=== PATIENT | female | born 1980 | race Caucasian/White ===

== ENCOUNTER → 2018-02-10 | Outpatient (CLI) | payer SELFPAY | LOC: COL.RAD 10:00 | DX: R60.0 Localized edema (principal); M79.605 Pain in left leg ==

== ENCOUNTER → 2018-05-11 | Outpatient (CLI) | payer SELFPAY | LOC: ZCOL.LAB 13:47 | DX: Z01.89 Encounter for other specified special examinations (principal) ==

== ENCOUNTER → 2020-12-20 | Outpatient (CLI) | payer OTHER ==
[~2020-12-20] MED LIST: CELEXA 20MG20 MG/TA1 PO; CEPHALEXIN500 M1 PO; COLLAGENASE 1 ML1 ML; MULTIVITAMIN200 MCG PO; PROBIOTIC DIGE1 EACH
== END ==
LOC: MC.RAD 11:00
DX: N63.20 Unspecified lump in the left breast, unspecified quadrant (principal)

== ENCOUNTER → 2021-01-09 | Outpatient (CLI) | payer OTHER | LOC: MC.RAD 12-26 07:00 | DX: N63.20 Unspecified lump in the left breast, unspecified quadrant (principal); Z98.82 Breast implant status ==

== ENCOUNTER 2021-02-21 08:04 | Day surgery (SDC) | payer OTHER ==
[~2021-02-21] VITALS: Ht 172.7 cm; Wt 82.3 kg
[~2021-02-21 08:04] MED LIST changes: -COLLAGENASE 1 ML1 ML; -MULTIVITAMIN200 MCG PO; -PROBIOTIC DIGE1 EACH
[2021-02-21 08:56] VITALS: BP 136/95; PULSE 74; TEMP 97.7
[2021-02-21] MEDS ORDERED: COLLAGENASE 1 ML1 ML (09:09)
[2021-02-21] MEDS ORDERED: PROBIOTIC DIGE1 EACH (09:09)
[2021-02-21] MEDS ORDERED: MULTIVITAMIN200 MCG PO (09:10)
--- NOTE | 2021-02-21 10:48 | NUR ---
Pt returned to [facility] via cart. Alert and oriented. Postop vitals started. Surgical site is dry clean and well approximated. Apple juice and gramcrackers provided. Denies any discomfort. Will continue to monitor.
[2021-02-21 10:58] VITALS: BP 108/63; PULSE 68; TEMP 97.4
[2021-02-21 11:03] VITALS: BP 110/73; PULSE 65
--- NOTE | 2021-02-21 11:03 | NUR ---
Patient sitting up in bed. Alert and oriented. Tolerting food and drink well. Vitals stable.
[2021-02-21 11:18] VITALS: BP 111/61; PULSE 62
--- NOTE | 2021-02-21 11:18 | NUR ---
Pt sitting up in bed. Alert and oriented. Denies any discomfort.
--- NOTE | 2021-02-21 11:40 | NUR ---
Pt up to restroom, voided without difficulty. Reviewed discharge instructions. D/C IV with no complications. Instructed patient to dress and open door when ready for transport.
--- NOTE | 2021-02-21 12:00 | NUR ---
Patient tansported via wheelchair to personal vehicle for to drive home.
== END 2021-02-21 12:00 | disposition home or self-care (01) ==
LOC: SDCO 08:04
DX: D24.2 Benign neoplasm of left breast (principal); F17.210 Nicotine dependence, cigarettes, uncomplicated; F32.9 Major depressive disorder, single episode, unspecified; F41.9 Anxiety disorder, unspecified; F43.10 Post-traumatic stress disorder, unspecified; Z20.822 Contact with and (suspected) exposure to COVID-19; Z90.89 Acquired absence of other organs; Z79.899 Other long term (current) drug therapy
CPT/HCPCS: A4648; J1100; J2250; J2405; J2704; J3010; J7120